=== PATIENT | male | born 1960 | race Two or more races ===

== ENCOUNTER 2019-08-05 07:28 | Emergency (ER) | payer SELFPAY ==
[~2019-08-05] VITALS: Ht 167.6 cm; Wt 65.9 kg
[2019-08-05 07:44] VITALS: BP 143/91
== END 2019-08-05 08:37 | disposition home or self-care (01) ==
LOC: EMS 07:28
DX: J22 Unspecified acute lower respiratory infection (principal); R05 Cough; B97.29 Other coronavirus as the cause of diseases classified elsewhere
CPT/HCPCS: 87635

== ENCOUNTER 2024-05-21 00:46 | Emergency (ER) | payer MEDICAID, OTHER ==
[~2024-05-21] VITALS: Ht 162.6 cm; Wt 81.8 kg
[2024-05-21 00:55] VITALS: TEMP 98.1
[2024-05-21 01:27] LABS: BASOPHILS % (AUTO) 0.5 % (0.0-2.0); EOSINOPHILS % (AUTO) 0.9 % (1.0-6.0); HEMATOCRIT 42.5 % (41-53); HEMOGLOBIN 14.2 g/dL (13.5-17.5); LYMPHOCYTES # (AUTO) 3.2 K/uL (1.0-4.8); LYMPHOCYTES % (AUTO) 32.3 % (22.0-44.0); MEAN CORPUSCULAR HEMOGLOBIN 28.5 pg (26.0-34.0); MEAN CORPUSCULAR HGB CONC 33.3 G/dL (31.0-37.0); MEAN CORPUSCULAR VOLUME 86 fL (80-100); MONOCYTES # (AUTO) 0.8 K/uL (0.1-1.0); MONOCYTES % (AUTO) 7.8 % (2.0-9.0); NEUTROPHILS # (AUTO) 5.8 K/uL (1.8-7.7); NEUTROPHILS % (AUTO) 58.5 % (40.0-70.0); PLATELET COUNT (AUTO) 252 K/uL (150-450); RED BLOOD CELL COUNT(AUTO) 4.97 MIL/uL (4.50-5.90); RED CELL DISTRIBUTION WIDTH 13.7 % (11.5-14.5)
[2024-05-21 01:32] LABS: APPEARANCE,URINE CLEAR (CLEAR); BILIRUBIN,URINE NEGATIVE (NEGATIVE); COLOR,URINE COLORLESS (YELLOW); GLUCOSE, URINE (UA) NEGATIVE (NEGATIVE); KETONES,URINE NEGATIVE (NEGATIVE); LEUKOCYTE ESTERASE ,URINE NEGATIVE (NEGATIVE); NITRATE,URINE NEGATIVE (NEGATIVE); OCCULT BLOOD,URINE NEGATIVE (NEGATIVE); PROTEIN,URINE NEGATIVE (NEGATIVE); SPECIFIC GRAVITIY, URINE 1.005 (1.003-1.030); UROBILINOGEN,URINE <=1.0 mg/dL (<=1.0)
[2024-05-21 01:32] LABS: ANION GAP 8 mmol/L (8-16); CARBON DIOXIDE 29 mmol/L (22-29); CHLORIDE 103 mmol/L (98-107); CREATININE 0.87 mg/dL (0.60-1.30); GLOMERULAR FILTR. RATE CALC > 60 mL/min (>60); GLUCOSE,RANDOM 117 mg/dL (70-110); SODIUM SERUM 140 mmol/L (136-145); UREA NITROGEN, BLOOD 14 mg/dL (7-18)
[2024-05-21 01:33] LABS: LIPASE 29 U/L (16-77)
[2024-05-21 01:43] LABS: CALCIUM, TOTAL 8.7 mg/dL (8.8-10.5)
[2024-05-21 04:37] VITALS: BP 145/78; PULSE 85; RESP 20; O2SAT 97
== END 2024-05-21 06:36 | disposition home or self-care (01) ==
LOC: EMS 00:48
DX: R10.12 Left upper quadrant pain (principal); J45.909 Unspecified asthma, uncomplicated
CPT/HCPCS: 71045; 74176; 80048; 81003; 83690; 85025; 93005; 99285; 36415-L1; 36415-TC